=== PATIENT | male | born 1985 | race Caucasian/White ===

== ENCOUNTER 2017-05-26 12:12 | Emergency (ER) | payer OTHER ==
[~2017-05-26] VITALS: Ht 180.3 cm; Wt 109.2 kg
[~2017-05-26 12:12] MED LIST: ACETAMINOPHEN500 MG PO; AZITHROMYCIN250 MG PO; CIPRO500 MG PO; COLCRYS0.6 MG PO; Cogentin PO; FLEXERIL10 MG PO; FLOMAX0.4 MG PO; HYDROCODON-ACE1 EACH; IBUPROFEN600 MG; INDOCIN25 MG PO; INDOCIN50 MG PO; KEFLEX500 MG PO; LEVAQUIN750 MG PO; MOTRIN600 MG PO; MOTRIN800 MG PO; Methadone PO; NARCAN4 MG NS; NICOTINE PATCH1 EAC2 TD; NORCO 5/3251 TABLET PO; NORCO 7.5/321 TABLET PO; OMEPRAZOLE40 M1 PO; PERCOCET 5/31 TABLET PO; PREDNISONE10 MG PO; PREDNISONE50 MG PO; PROVENTIL HFA6.7 GM IH; SKELAXIN800 MG PO; TAMSULOSIN HCL0.4 MG PO; TRAMADOL HCL50 MG PO; TUMS500 MG PO; VALIUM5 MG PO; VICODIN 5-3001 EACH PO; VICODIN,LORT1 TABLET PO; ZITHROMAX Z-PA250 MG PO; ZOFRAN4 MG PO; ZUBSOLV 2.9-0.1 EACH SL; ZUBSOLV 5.7-1.1 EACH SL
[2017-05-26 12:14] VITALS: BP 135/74
[2017-05-26] MEDS ORDERED: FLEXERIL10 MG PO (14:01)
[2017-05-26] MEDS ORDERED: LORTAB 5-325 M1 EACH PO (14:01)
[2017-05-26] MEDS ORDERED: NAPROSYN500 MG PO (14:01)
== END 2017-05-26 14:11 | disposition home or self-care (01) ==
LOC: EME 12:12
DX: S20.212A Contusion of left front wall of thorax, initial encounter (principal); V47.0XXA Car driver injured in collision with fixed or stationary object in nontraffic accident, initial encounter; F17.200 Nicotine dependence, unspecified, uncomplicated
CPT/HCPCS: 71020; 99281; 99284

== ENCOUNTER 2017-09-05 12:50 | Emergency (ER) | payer OTHER ==
[~2017-09-05] VITALS: Ht 182.9 cm; Wt 121.1 kg
[~2017-09-05 12:50] MED LIST changes: +LORTAB 5-325 M1 EACH PO; +NAPROSYN500 MG PO
[2017-09-05 14:59] LABS: CHLORIDE 102 mEq/L (99-109); POTASSIUM 4.3 mEq/L (3.7-5.4); SODIUM 140 mEq/L (136-147)
[2017-09-05 15:00] LABS: EOSINOPHIL (%) 0.5 % (0-5); EOSINOPHIL COUNT 0.1 K/uL (0-0.3); HEMATOCRIT 48.2 % (38.0-50.0); IMMATURE GRANULOCYTE (%) 0.6 % (0.0-0.7); IMMATURE GRANULOCYTE COUNT 0.1 K/uL; INSTRUMENT ABS NEUTROPHIL CT 8.8 K/uL; LYMPHOCYTE COUNT 1.2 K/uL (1.0-2.8); MCH 27.8 PG (29.0-34.0); MCHC 33.2 G/DL (30.0-36.0); MCV 83.7 FL (86-99); MEAN PLAT.VOLUME 9.5 uM^3 (9.0-12.4); MONOCYTE (%) 6.8 % (3-12); MONOCYTE COUNT 0.7 K/uL (0-0.8); NEUTROPHIL (%) 80.7 % (45-76); NEUTROPHIL COUNT 8.8 K/uL (1.8-6.4); PLATELET COUNT 196 K/uL (156-360); RBC DIS.WIDTH-CV 14.4 % (11.8-14.6); RBC DIS.WIDTH-SD 43.5 % (39-53); RED BLOOD COUNT 5.76 M/uL (4.00-5.50); WHITE BLOOD COUNT 10.9 K/uL (4.1-10.2)
[2017-09-05 15:01] LABS: GLUCOSE 103 mg/dL (70-99)
[2017-09-05 15:02] LABS: ANION GAP 13 MEQ/L (2-14)
[2017-09-05 15:04] LABS: SERUM ETHYL ALCOHOL < 10 mg/dL
[2017-09-05 15:05] LABS: GFR ESTIMATE (CALCULATED) > 59 mL/min/
[2017-09-05 15:07] LABS: UREA NITROGEN (BUN) 13 mg/dL (9-23)
[2017-09-05 15:08] LABS: SALICYLATE < 5.0 MG/DL (15-30)
[2017-09-05 15:22] VITALS: BP 132/67
== END 2017-09-05 15:25 | disposition left against medical advice (07) ==
LOC: EME 12:50
PROVIDERS: Personal Emergency Response Attendant
DX: T40.2X1A Poisoning by other opioids, accidental (unintentional), initial encounter (principal); T48.1X1A Poisoning by skeletal muscle relaxants [neuromuscular blocking agents], accidental (unintentional), initial encounter; R40.0 Somnolence; Y92.009 Unspecified place in unspecified non-institutional (private) residence as the place of occurrence of the external cause; F17.200 Nicotine dependence, unspecified, uncomplicated
CPT/HCPCS: 80048; 85025; 99281; 99284; G0480

== ENCOUNTER 2018-01-29 05:51 | Emergency (ER) | payer SELFPAY ==
[~2018-01-29] VITALS: Ht 182.9 cm; Wt 104.5 kg
[2018-01-29] MEDS ORDERED: INDOCIN50 MG PO (06:32)
[2018-01-29 07:33] VITALS: BP 124/72
== END 2018-01-29 07:35 | disposition home or self-care (01) ==
LOC: EME 05:51
DX: M10.9 Gout, unspecified (principal); F41.9 Anxiety disorder, unspecified; F32.9 Major depressive disorder, single episode, unspecified; F17.200 Nicotine dependence, unspecified, uncomplicated; Z87.442 Personal history of urinary calculi
CPT/HCPCS: 99281; 99283; J1885

== ENCOUNTER 2018-03-21 02:02 | Emergency (ER) | payer OTHER ==
[~2018-03-21] VITALS: Ht 182.9 cm; Wt 121.0 kg
[2018-03-21 03:43] LABS: HEMATOCRIT 42.8 % (38.0-50.0); HEMOGLOBIN 14.8 G/DL (12.5-16.6); MCH 28.8 PG (29.0-34.0); MCHC 34.6 G/DL (30.0-36.0); MCV 83.3 FL (86-99); PLATELET COUNT 239 K/uL (156-360); RBC DIS.WIDTH-CV 12.8 % (11.8-14.6); RBC DIS.WIDTH-SD 39.3 % (39-53); RED BLOOD COUNT 5.14 M/uL (4.00-5.50); WHITE BLOOD COUNT 9.8 K/uL (4.1-10.2)
[2018-03-21 03:51] LABS: CHLORIDE 106 mEq/L (99-109); POTASSIUM 3.8 mEq/L (3.7-5.4); SODIUM 142 mEq/L (136-147)
[2018-03-21 03:52] LABS: GLUCOSE 118 mg/dL (70-99)
[2018-03-21 03:56] LABS: CREATININE 0.7 mg/dL (0.6-1.3); GFR ESTIMATE (CALCULATED) > 59 mL/min/ (58.99-99999)
[2018-03-21 03:57] LABS: UREA NITROGEN (BUN) 9 mg/dL (9-23)
[2018-03-21 05:09] VITALS: BP 125/85
== END 2018-03-21 05:15 ==
LOC: EME → EDBD 02:02 → EME 05:15
PROVIDERS: Emergency Medicine
DX: G43.909 Migraine, unspecified, not intractable, without status migrainosus (principal); M89.9 Disorder of bone, unspecified; R93.0 Abnormal findings on diagnostic imaging of skull and head, not elsewhere classified; M10.9 Gout, unspecified; F41.9 Anxiety disorder, unspecified; F32.9 Major depressive disorder, single episode, unspecified; F17.200 Nicotine dependence, unspecified, uncomplicated; Z87.442 Personal history of urinary calculi
CPT/HCPCS: 70450; 80048; 85027; 99281; 99283; J1200; J2765